=== PATIENT | male | born 1935 | race Caucasian/White ===

== ENCOUNTER → 2017-03-19 13:15 | Outpatient (CLI) | payer MEDICARE, OTHER ==
[2015-06-13 12:36] VITALS: BMI 19.7
[~2017-03-19 13:15] MED LIST: ACIPHEX20 MG PO; ADVAIR 250/501 DISK INH; CYCLOBENZAPRINE10 MG PO; ELIQUIS2.5 MG PO; FERREX 150 PLUS1 CAP PO; FLOMAX0.4 MG PO; FLUTICASONE PRO16 GM NASAL; HYDROCODON-ACE1 EAC6 PO; HYDROCODON-ACE1 EAC7 PO; IPRAT-ALBUT 0.5-3 ML UPD; LEVAQUIN750 MG PO; METAMUCIL FIB1 WAFER PO; PERCOCET 10/3251 TA1 PO; PREDNISONE20 MG PO; PROVENTIL HFA6.7 GM INH; PULMICORT0.5 MG/21 UPD; SINGULAIR10 MG PO; SPIRIVA18 MCG INH; TRAVATAN Z2.5 ML LEFT EYE; VITAMIN D31000 UNI2 PO
== END | disposition home or self-care (01) ==
LOC: D.RT 13:15
DX: J44.9 Chronic obstructive pulmonary disease, unspecified (principal)

== ENCOUNTER → 2018-03-16 07:47 | Outpatient (CLI) | payer MEDICARE, OTHER ==
[2015-06-13 12:36] VITALS: BMI 19.7
== END | disposition home or self-care (01) ==
LOC: D.RT 03-10 11:00 → D.RAD 03-10 11:45 → D.RT 07:47
DX: J44.9 Chronic obstructive pulmonary disease, unspecified (principal)

== ENCOUNTER 2018-05-27 11:19 | Emergency (ER) | payer MEDICARE, OTHER ==
[~2018-05-27] VITALS: Ht 172.7 cm; Wt 61.4 kg
[2018-05-27 11:49] VITALS: Ht 172.7 cm; Wt 61.4 kg
[2018-05-27] MEDS ORDERED: KEFLEX500 MG PO (15:21)
[2018-05-27 15:34] VITALS: BP 126/68
== END 2018-05-27 15:39 | disposition home or self-care (01) ==
LOC: D.ER 11:19
DX: S51.812A Laceration without foreign body of left forearm, initial encounter (principal); W26.8XXA Contact with other sharp object(s), not elsewhere classified, initial encounter; Y93.89 Activity, other specified; Y92.89 Other specified places as the place of occurrence of the external cause; S50.12XA Contusion of left forearm, initial encounter

== ENCOUNTER → 2019-03-13 08:41 | Outpatient (CLI) | payer MEDICARE, OTHER ==
[2018-05-27 11:49] VITALS: BMI 20.5
[~2019-03-13 08:41] MED LIST changes: +KEFLEX500 MG PO
== END | disposition home or self-care (01) ==
LOC: D.RT 08:41
PROVIDERS: ATTEND Internal Medicine Pulmonary Disease
DX: J44.9 Chronic obstructive pulmonary disease, unspecified (principal)

== ENCOUNTER 2019-07-24 19:25 | Inpatient (IN) | payer MEDICARE, OTHER ==
[~2019-07-24] VITALS: Ht 172.7 cm; Wt 62.6 kg
[2019-07-24] MEDS ORDERED: TRELEGY ELLIPT1 EACH INH (19:49)
[2019-07-24] MEDS ORDERED: HYDROCODONE-A1 UDTA2 PO (19:50)
[2019-07-24 20:18] LABS: BASOPHILS 0.2 % (0-2); EOSINOPHILS 0.8 % (0-7); HEMATOCRIT 35.5 % (42.0-54.0); HEMOGLOBIN 11.8 g/dL (13.5-17.5); IMMATURE GRANULOCYTES 0.3 % (0-5); LYMPHOCYTES 15.8 % (15-50); MCH 28.2 pg (26.0-34.0); MCHC 33.2 g/dL (31.0-37.0); MCV 84.9 fL (80.0-100.0); MEAN PLATELET VOLUME 9.5 fL (7.4-10.4); MONOCYTES 11.7 % (2-11); NEUTROPHILS 71.2 % (40-80); PLATELET COUNT 345 10x3/uL (130-400); RBC 4.18 10x6/uL (4.20-6.10); RDW 14.5 % (11.5-14.5); WBC 9.5 10x3/uL (4.8-10.8)
[2019-07-24 20:47] LABS: ALBUMIN 3.9 g/dL (3.4-5.0); ALKALINE PHOSPHATASE 69 U/L (46-116); ALT (SGPT) 16 U/L (10-68); AMYLASE - SERUM 67 U/L (25-115); BILIRUBIN - TOTAL 0.35 mg/dL (0.2-1.3); CALC OSMOLALITY 279 mosm/kg (275-300); CALCIUM 8.8 mg/dL (8.5-10.1); CARBON DIOXIDE 32.2 mmol/L (21.0-32.0); CHLORIDE - SERUM 100 mmol/L (98-107); CREATININE - SERUM 0.8 mg/dL (0.6-1.3); GLUCOSE 88 mg/dL (74-106); LIPASE 127 U/L (73-393); POTASSIUM - SERUM 3.7 mmol/L (3.5-5.1); PROTEIN - SERUM 8.2 g/dL (6.4-8.2); SODIUM 140 mmol/L (136-145); UREA NITROGEN 17 mg/dL (7-18); eGFR NON AFRICAN AMERICAN > 90 mL/min (90-120)
[2019-07-24 20:53] LABS: APPEARANCE CLEAR (CLEAR); BILIRUBIN NEGATIVE (NEGATIVE); COLOR YELLOW (YELLOW); EPITHELIAL CELLS 0-5 /hpf (0-5); GLUCOSE NEGATIVE (NEGATIVE); KETONE MODERATE mg/dL (NEGATIVE); NITRITE NEGATIVE (NEGATIVE); PROTEIN NEGATIVE (NEGATIVE); RED CELLS - URINE 0-5 /hpf (0-5); UROBILINOGEN NORMAL (NORMAL); WHITE CELLS - URINE 0-5 /hpf (0-5)
[2019-07-25] MEDS ORDERED: CLARITIN 10 MG10 MG PO (00:55)
[2019-07-25] MEDS ORDERED: CELEXA20 MG PO (00:55)
[2019-07-25] MEDS ORDERED: MUPIROCIN22 GM TOPICAL (00:55)
[2019-07-25 00:57] VITALS: BP 111/56; BMI 21.0
[2019-07-25 04:46] VITALS: BP 104/63
--- NOTE | 2019-07-25 07:31 | NUR ---
ROUNDING DONE WITH PAIENT IN [place] POSITION FOR LARGE HERNIA SEEN TO SCROTUM AREA, ICE PACK IN USE. ON HEART MONITOR. NPO UNTIL SEEN PER SURGERON. ON ROOM AIR. RIGHT FA PIV SEEN WITH NS INFUSING AT 125 CC/HR, BILATERAL SCD'S ON AND IN USE. AT BEDSIDE. WILL CPOC.
[2019-07-25 07:48] VITALS: BP 92/46
[2019-07-25] MEDS ORDERED: MIRALAX17 GM PO (07:54)
[2019-07-25] MEDS ORDERED: COLACE100 MG PO (07:55)
[2019-07-25] MEDS ORDERED: TRELEGY ELLIPT1 EACH INH (07:55)
--- NOTE | 2019-07-25 08:12 | NUR ---
0808-PATIENT IS STILL NPO. OP PERMITS SIGNED FOR SURGERY FOR TODAY.
--- NOTE | 2019-07-25 09:52 | NUR ---
TO OR VIA BED.
--- NOTE | 2019-07-25 11:33 | NUR ---
DEMOROL GIVEN FOR POST OP SHIVERING ALONG WITH WARM BLANKET.
[2019-07-25 11:46] VITALS: BP 108/48
--- NOTE | 2019-07-25 11:47 | NUR ---
1144-RETURNS FROM RR WITH SMALL WHITE BORDER GUAZE DRESSING TO LEFT GROIN, NO DATE.
[2019-07-25 13:07] VITALS: Ht 172.7 cm; Wt 62.6 kg
[2019-07-25 15:50] VITALS: BP 112/53
--- NOTE | 2019-07-25 18:20 | NUR ---
PATIENT TO STAND AT BEDSIDE TO TRY AND VOID, UNABLE TO. WILL PASS THIS TO NEXT SHIFT. PATIENT IS WANTING ANOTHER PAIN PILL, UNABLE TO UNTIL 1914. PATIENT IS COUGHING AND DEEP BREATHING FOR ME I HAVE ASKED.
--- NOTE | 2019-07-25 19:14 | NUR ---
PATIENT UP TO RESTROOM ATTEPMTING TO URINATE
[2019-07-25 19:32] VITALS: BP 110/50
--- NOTE | 2019-07-25 19:44 | MORECARE ---
CASE MANAGEMENT DISCHARGE SUMMARY PATIENT: SNEHAL MACHUCA UNIT: [id number] ADM DATE: 07/25/19 AGE: 84 : 36 SEX: M ROOM/BED: D.1204 AUTHOR: SABI MONTGOMERY PHYSICIAN: REFERRING PHYSICIAN: SEBAS DELUCA MD DATE OF SERVICE: 07/25/19 Discharge Plan Patient Name: SNEHAL MACHUCA Facility: [facility]:[place] : 1935 Planned Disposition: Home Anticipated Discharge Date: Discharge Date: Expected LOS: Initial Reviewer: [email or web address] Initial Review Date: 07/25/2019 Generated: 07/25/19 8:44 pm DCPIA - Discharge Planning Initial Assessment Updated by [email or web address]: Rosanna Miller on 07/25/19 7:42 pm * Is the patient Alert and Oriented? Yes * How many steps to enter\exit or inside your home? * PCP DAVION * Pharmacy [facility] * Preadmission Environment Home with Family * ADLs Independent * Other Equipment WALKER, BSC, SC, CANE, HOME 02 * List name and contact numbers for known caregivers / representatives who currently or will assist patient after discharge: INGRID MACHUCA - SPOUSE- [phone] MONTEZ MACHUCA - SON - [phone], * Verbal permission to speak to the caregivers and representatives has been obtained from the patient. Yes * Community resources currently utilized None * Additional services required to return to the preadmission environment? No * Can the patient safely return to the preadmission environment? Yes * Has this patient been hospitalized within the prior 30 days at any hospital? No Patient Name: SNEHAL MACHUCA Page 01101 at 1944 All edits/amendments must be made on the electronic document DICTATION DATE: 07/25/191943 FACILITIES PLANT ENGINEER: WADE 07/25/191943 RPT#: [id number] DC DATE: STATUS: ADM IN [facility] [address] [place] [address] END OF REPORT
--- NOTE | 2019-07-25 19:52 | MORECARE ---
CASE MANAGEMENT DISCHARGE SUMMARY PATIENT: SNEHAL MACHUCA UNIT: [id number] ADM DATE: 07/25/19 AGE: 84 : 36 SEX: M ROOM/BED: D.1204 AUTHOR: VALENTINA,DOC PHYSICIAN: REFERRING PHYSICIAN: SEBAS DELUCA MD DATE OF SERVICE: 07/25/19 Discharge Plan Patient Name: SNEHAL MACHUCA Facility: [facility]:[place] : 1935 Planned Disposition: Home Anticipated Discharge Date: Discharge Date: Expected LOS: Initial Reviewer: [email or web address] Initial Review Date: 07/25/2019 Generated: 07/25/19 8:51 pm Comments DCP- Discharge Planning Updated by [email or web address]: Rosanna Miller on 07/25/19 6:[address] Patient Name: SNEHAL MACHUCA Admission Status: ER Accout number: [id number] Admission Date: 07-25-2019 : 1935 Admission Diagnosis: Attending: LIAM DELUCA Current LOS: 1 Anticipated DC Date: Planned Disposition: Home Primary Insurance: MEDICARE A & B Discharge Planning Comments: CM met with patient at bedside after explaining CM role and obtaining verbal consent. Patient lives at home with his Brynn where he is independent with his care and plans to return there upon discharge. Patient feels this would be a safe discharge. CM discussed availability / needs of home health and medical equipment. Patient states he has walker, cane, BSC, SC, and home 02 that he wears @ [facility]. (unknown provider) Patient denies any discharge needs at this time. Patient states he will have his family drive him home upon discharge. CM will continue to follow and assist as needed with discharge planning / needs. Pile Driving Nozzleman: Rosanna Miller DCPIA - Discharge Planning Initial Assessment Updated by [email or web address]: Rosanna Miller on 07/25/19 7:42 pm * Is the patient Alert and Oriented? Yes * How many steps to enter\exit or inside your home? * PCP RICARDO * Pharmacy [facility] * Preadmission Environment Home with Family * ADLs Independent * Other Equipment WALKER, BSC, SC, CANE, HOME 02 * List name and contact numbers for known caregivers / representatives who currently or will assist patient after discharge: BRYNN MACHUCA - SPOUSE- [phone] MONTEZ MACHUCA - SON - [phone], * Verbal permission to speak to the caregivers and representatives has been obtained from the patient. Yes * Community resources currently utilized None * Additional services required to return to the preadmission environment? No * Can the patient safely return to the preadmission environment? Yes * Has this patient been hospitalized within the prior 30 days at any hospital? No Last DP export: 07/25/19 6:45 p Patient Name: SNEHAL MACHUCA Page 26804 at 1952 All edits/amendments must be made on the electronic document DICTATION DATE: 07/25/191950 STOKER INSTALLER: WADE 07/25/191950 RPT#: [id number] DC DATE: STATUS: ADM IN [facility] [address] [place] [address] END OF REPORT
--- NOTE | 2019-07-25 23:10 | NUR ---
PATIENT VOIDED 25ML SINCE HE RETURNED FROM SURGERY. BLADDER SCAN REVEALED 444ML.
--- NOTE | 2019-07-25 23:31 | NUR ---
INSERTED A 16F SERVIN CATH PER ORDERS. 600ML URINE RETURN
[2019-07-26 00:18] VITALS: BP 114/52
[2019-07-26 04:13] VITALS: BP 101/50
[2019-07-26 06:18] LABS: HEMATOCRIT 31.5 % (42.0-54.0); HEMOGLOBIN 10.3 g/dL (13.5-17.5); MCH 27.8 pg (26.0-34.0); MCHC 32.7 g/dL (31.0-37.0); MCV 85.1 fL (80.0-100.0); MEAN PLATELET VOLUME 9.8 fL (7.4-10.4); PLATELET COUNT 311 10x3/uL (130-400); RDW 15.1 % (11.5-14.5)
[2019-07-26 06:29] LABS: WBC 12.1 10x3/uL (4.8-10.8)
--- NOTE | 2019-07-26 07:09 | NUR ---
ROUNDING DONE WITH PATIENT HAVING HIS GLASSES ON AND GRINNING, STATES TO NO PAIN THIS AM AT PRESENT TIME. ON EP, NO LAB VALUES BACK AT THIS TIME. ON 2L PER NC. AT BEDISDE. ON HEART MONITOR. RIGHT FA PIV SEEN WITH NS INFUSING AT 125 CC/HR. SERVIN CATH PATENT WITH CLEAR YELLOW URINE. DRESSING TO LEFT GROIN, C/D/I. BILATERAL SCD'S ON AND IN USE.
[2019-07-26 07:15] LABS: ALKALINE PHOSPHATASE 52 U/L (46-116); ALT (SGPT) 17 U/L (10-68); BILIRUBIN - TOTAL 0.54 mg/dL (0.2-1.3); CALC OSMOLALITY 279 mosm/kg (275-300); CALCIUM 8.5 mg/dL (8.5-10.1); CARBON DIOXIDE 25.7 mmol/L (21.0-32.0); CHLORIDE - SERUM 105 mmol/L (98-107); GLUCOSE 114 mg/dL (74-106); MAGNESIUM - SERUM 2.1 mg/dL (1.8-2.4); POTASSIUM - SERUM 4.1 mmol/L (3.5-5.1); SODIUM 138 mmol/L (136-145); UREA NITROGEN 21 mg/dL (7-18); eGFR NON AFRICAN AMERICAN 76 mL/min (90-120)
[2019-07-26 07:16] LABS: ALBUMIN 2.8 g/dL (3.4-5.0); PROTEIN - SERUM 5.8 g/dL (6.4-8.2)
--- NOTE | 2019-07-26 07:20 | NUR ---
EP RESULTS ARE K+ 4.1, MAG 2.1. NO NEED TO COVER WITH SUPPLEMENTS.
--- NOTE | 2019-07-26 08:27 | NUR ---
IV TO RIGHT FA IS INFILTRATING, SWOLLEN. CATH REMOVED WITH TIP INTACT. RE-STIED WITH 22 G TO LEFT FA.
[2019-07-26 08:35] VITALS: BP 114/47
--- NOTE | 2019-07-26 09:07 | NUR ---
DR ASH TO CALL AND INQUIRE ABOUT PATIENT. AWAITING NEW ORDERS.
--- NOTE | 2019-07-26 10:41 | NUR ---
UP WITH THERAPY. FOELY CATH WAS REMOVED AT 0926 PAST BULB DEFLATION. INSTRUCTED TO USE URNIAL TO VOID IN.
[2019-07-26 10:53] LABS: HYPOCHROMASIA OCC; LYMPHOCYTES 19 % (15-50); MONOCYTES 17 % (2-11); NEUTROPHILS 61 % (40-80); PLATELET ESTIMATE NORMAL
[2019-07-26 11:26] VITALS: BP 120/53
[2019-07-26 15:16] VITALS: BP 110/54
[2019-07-26 19:00] VITALS: BP 133/89
--- NOTE | 2019-07-26 19:00 | NUR ---
REPORT RECEIVED FROM OFF GOING NURSE. PT IS RESTING IN BED AT THIS TIME WITH AT BEDSIDE. NO NEEDS NOTED OR VOICED AT THIS TIME. NO OBVIOUS SIGNS OF DISTRESS. INITIAL ASSESSMENT COMPLETED, SEE FLOWSHEET FOR DETAILS. WILL CONTINUE TO MONITOR.
[2019-07-27 04:00] VITALS: BP 105/60
[2019-07-27 06:45] LABS: BASOPHILS 0.1 % (0-2); EOSINOPHILS 0.4 % (0-7); HEMATOCRIT 28.2 % (42.0-54.0); HEMOGLOBIN 9.2 g/dL (13.5-17.5); IMMATURE GRANULOCYTES 0.2 % (0-5); LYMPHOCYTES 8.6 % (15-50); MCH 27.7 pg (26.0-34.0); MCHC 32.6 g/dL (31.0-37.0); MCV 84.9 fL (80.0-100.0); MEAN PLATELET VOLUME 9.9 fL (7.4-10.4); MONOCYTES 18.3 % (2-11); NEUTROPHILS 72.4 % (40-80); PLATELET COUNT 269 10x3/uL (130-400); RBC 3.32 10x6/uL (4.20-6.10); RDW 15.1 % (11.5-14.5); WBC 12.7 10x3/uL (4.8-10.8)
[2019-07-27 06:55] LABS: ALBUMIN 2.4 g/dL (3.4-5.0); ALKALINE PHOSPHATASE 47 U/L (46-116); ALT (SGPT) 16 U/L (10-68); CALCIUM 7.7 mg/dL (8.5-10.1); CARBON DIOXIDE 25.1 mmol/L (21.0-32.0); CHLORIDE - SERUM 105 mmol/L (98-107); GLUCOSE 102 mg/dL (74-106); MAGNESIUM - SERUM 1.7 mg/dL (1.8-2.4); POTASSIUM - SERUM 3.8 mmol/L (3.5-5.1); PROTEIN - SERUM 5.6 g/dL (6.4-8.2); SODIUM 138 mmol/L (136-145)
[2019-07-27 06:57] LABS: CALC OSMOLALITY 275 mosm/kg (275-300); CREATININE - SERUM 0.7 mg/dL (0.6-1.3); UREA NITROGEN 12 mg/dL (7-18); eGFR NON AFRICAN AMERICAN > 90 mL/min (90-120)
--- NOTE | 2019-07-27 07:10 | NUR ---
REPORT RECEIVED FROM MAKE UP EDITOR AND PATIENT CARE ASSUMED. PATIENT LAYING IN BED WITH EYES CLOSED AND BREATHING EVENLY. SLEEPING IN BS CHAIR. WILL CONTINUE WITH PLAN OF CARE. SR UP X 2 BED IN LOW POSITION AND CALL LIGHT IN REACH.
[2019-07-27 08:00] VITALS: BP 122/53; BP 133/59
--- NOTE | 2019-07-27 08:34 | NUR ---
NUTRITION F/U PT TOLERATING REG DIET, 100% INTAKE BREAKFAST THIS AM. NO COMPLAINTS. WILL CONTINUE TO PROVIDE REG DIET, MONITOR PO INTAKE. RD FOLLOWING
--- NOTE | 2019-07-27 09:40 | NUR ---
PATIENT AWAKE, ALERT AND ORIENTED X 4. PATIENT COMPLAINS OF LOWER ABD PAIN. ORAL T 100.2. MEDICATED PATIENT PER MAR FOR PAIN AND FEVER. WILL CONTINUE TO MONITOR. SR UP X 2 BED IN LOW POSITION AND CALL LIGHT IN REACH.
--- NOTE | 2019-07-27 10:00 | NUR ---
PATIENT STATES FEELING BETTER . PATIENT UP TO AMBULATE IN HALLWAY WITH AT SIDE. PATIENT IS STEADY AND TOLERATING WELL. COMPLETE LINEN CHANGE. PATIENT DENIES TAKING SHOWER STATES MAY THIS AFTERNOON. WILL CONTINUE TO MONITOR.SR UP X 2 BED IN LOW POSITION AND CALL LIGHT IN REACH.
[2019-07-27 11:30] VITALS: BP 118/58
--- NOTE | 2019-07-27 12:13 | NUR ---
RADIOLOGY IN ROOM FOR ABD XRAY.
--- NOTE | 2019-07-27 13:23 | OP ---
PATIENT NAME: SNEHAL MACHUCA MEDICAL RECORD: [id number] :[birth year] LOCATION:D.M3 D.1204 ADMISSION DATE:07/25/19 SURGEON: TEZ ASH MD DATE OF OPERATION: 07/25/2019 PREOPERATIVE DIAGNOSES: 1. Incarcerated left inguinal hernia. 2. Chronic obstructive pulmonary disease. POSTOPERATIVE DIAGNOSES: 1. Incarcerated left inguinal hernia. 2. Chronic obstructive pulmonary disease. PROCEDURE: Left inguinal hernia repair with large PHS mesh. SURGEON: Tez Ash MD REPORT OF PROCEDURE: The patient's left groin was prepped and draped in sterile fashion. An oblique incision was made above the inguinal ligament. Electrocautery was used to dissect through the subcutaneous tissues to the external oblique fascia. This fascia was opened up to the external ring using electrocautery. The patient had a large hernia sac present that was filled with abdominal contents. Eventually, we were able to manipulate the hernia sac and spermatic cord and placed a Winder around it. We then eviscerated the patient's testicles through the wound and began our dissection distally. As we opened up the cavity around the testicle, the patient had a small hydrocele with clear fluid present. We unroofed the hydrocele and took off any of the surrounding tissues that were present. We then were able to manually reduce the inguinal hernia. We were able to dissect free the hernia sac from the spermatic cord and then open up the hernia sac to inspect the bowel. The patient's colon appeared to be viable with no signs of gangrenous changes. The hernia sac was then closed and pushed back into the abdominal cavity. We then opened up the inguinal floor and placed a large PHS mesh in the preperitoneal space of Retzius. The mesh was sutured down on all sides using multiple interrupted 0 Vicryls. The wound was then irrigated out thoroughly with normal saline. The ilioinguinal nerve was found and high ligated. We then closed the external oblique fascia with running 2-0 Vicryl, Meet's was closed with interrupted 3-0 Vicryl and the skin was closed with running subcutaneous 5-0 Monocryl. A total of 10 mL of 0.25% Marcaine with epinephrine was infused into the surrounding tissues and the wound was dressed appropriately. COMPLICATIONS: None. CONDITION: Stable. ANESTHESIA: General endotracheal and local. BLOOD LOSS: Minimal. TRANSINT:[id number] Voice Confirmation ID: [id number] DOCUMENT ID: [id number] OPERATIVE REPORT [id number] SNEHAL MACHUCA CHRISTIAN MD at 1323 CC: [id number] DICTATION DATE: 07/25/19 1113 COLON AND RECTAL SURGEON: 07/25/19 1213 ADM IN [place] [id number] [place] [id number]
[2019-07-27 16:30] VITALS: BP 122/72
--- NOTE | 2019-07-27 16:30 | NUR ---
PATIENT IS STABLE AND VSS. PATIENT LAYING IN BED ON BACK . PATIENT DENIES ANY NEEDS OR PAIN. PATIENT STATES HE IS ANXIOUS TO GO HOME. IS AT BS. WILL CONTINUE TO MONITOR. SR UP X 2 BED IN LOW POSITION AND CALL LIGHT IN REACH.
[2019-07-27 19:00] VITALS: BP 108/51
--- NOTE | 2019-07-27 19:00 | NUR ---
REPORT RECEIVED FROM OFF GOING NURSE. PT IS LAYING IN BED AT THIS TIME. IS AT BEDSIDE. PT COMPLAINS OF PAIN AND SWELLING TO HIS GROIN AREA. PT CURRENTLY HAS ICEPACKS APPLIED TO THE AREA AND STATES THEY DO HELP WITH THE DISCOMFORT. NO FURTHER NEEDS NOTED AT THIS TIME. WILL CONTINUE TO MONITOR.
--- NOTE | 2019-07-28 01:15 | NUR ---
PT IS LAYING IN BED. COMPLAINS OF BEING UNABLE TO SLEEP. PT'S GROIN IS STILL RED AND SWOLLEN. FRESH ICE PACKS APPLIED TO AREA. NO FURTHER NEEDS NOTED. WILL CONTINUE TO MONITOR.
[2019-07-28 04:00] VITALS: BP 110/46
[2019-07-28 06:42] LABS: BASOPHILS 0 % (0-2); EOSINOPHILS 0.9 % (0-7); HEMOGLOBIN 9.5 g/dL (13.5-17.5); IMMATURE GRANULOCYTES 0.2 % (0-5); LYMPHOCYTES 8.2 % (15-50); MCH 27.8 pg (26.0-34.0); MCHC 32.8 g/dL (31.0-37.0); MCV 84.8 fL (80.0-100.0); MEAN PLATELET VOLUME 9.8 fL (7.4-10.4); MONOCYTES 13.6 % (2-11); NEUTROPHILS 77.1 % (40-80); PLATELET COUNT 270 10x3/uL (130-400); RBC 3.42 10x6/uL (4.20-6.10); RDW 15.3 % (11.5-14.5); WBC 11.3 10x3/uL (4.8-10.8)
[2019-07-28 07:12] LABS: ALBUMIN 2.7 g/dL (3.4-5.0); ALKALINE PHOSPHATASE 58 U/L (46-116); ALT (SGPT) 19 U/L (10-68); BILIRUBIN - TOTAL 0.81 mg/dL (0.2-1.3); CALC OSMOLALITY 277 mosm/kg (275-300); CALCIUM 7.7 mg/dL (8.5-10.1); CARBON DIOXIDE 24.7 mmol/L (21.0-32.0); CHLORIDE - SERUM 106 mmol/L (98-107); CREATININE - SERUM 0.8 mg/dL (0.6-1.3); GLUCOSE 95 mg/dL (74-106); MAGNESIUM - SERUM 1.8 mg/dL (1.8-2.4); POTASSIUM - SERUM 3.5 mmol/L (3.5-5.1); PROTEIN - SERUM 6.1 g/dL (6.4-8.2); SODIUM 140 mmol/L (136-145); UREA NITROGEN 10 mg/dL (7-18); eGFR NON AFRICAN AMERICAN > 90 mL/min (90-120)
--- NOTE | 2019-07-28 07:27 | NUR ---
REPORT RECEIVED FROM MOBILE PHONE SALESPERSON AND PATIENT CARE ASSUMED. PATIENT LAYING IN BED ON BACK AWAKE, ALERT AND ORIENTED X 4. PATIENT STATES DIDNT SLEEP WELL. STATES WASNT IN PAIN JUST COULD NOT SLEEP. PATIENT STATES HE REALLY WANTS TO GO HOME TODAY. PATIENT HAS BEEN APPLYING ICE PACK TO LT GROIN. EDEMA HAS DECREASED. WILL CONTINUE WITH PLAN OF CARE. SR UP X 2 BED IN LOW POSITION AND CALL LIGHT IN REACH. AT BS.
[2019-07-28] MEDS ORDERED: KEFLEX500 MG PO (12:30)
[2019-07-28 13:58] LABS: APPEARANCE CLEAR (CLEAR); BACTERIA FEW /hpf (NEGATIVE); BILIRUBIN NEGATIVE (NEGATIVE); COLOR YELLOW (YELLOW); EPITHELIAL CELLS RARE /hpf (0-5); GLUCOSE NEGATIVE (NEGATIVE); KETONE MODERATE mg/dL (NEGATIVE); NITRITE NEGATIVE (NEGATIVE); PROTEIN TRACE mg/dL (NEGATIVE); UROBILINOGEN NORMAL (NORMAL); WHITE CELLS - URINE OCC /hpf (NEGATIVE)
--- NOTE | 2019-07-28 16:02 | MORECARE ---
CASE MANAGEMENT DISCHARGE SUMMARY PATIENT: SNEHAL MACHUCA UNIT: [id number] ADM DATE: 07/25/19 AGE: 84 : 36 SEX: M ROOM/BED: D.1204 AUTHOR: VALENTINA,DOC PHYSICIAN: REFERRING PHYSICIAN: SEBAS DELUCA MD DATE OF SERVICE: 07/28/19 Discharge Plan Patient Name: SNEHAL MACHUCA Facility: [facility]:[place] : 1935 Planned Disposition: Home Anticipated Discharge Date: Discharge Date: 07/28/2019 Expected LOS: Initial Reviewer: [email or web address] Initial Review Date: 07/25/2019 Generated: 07/28/19 5:02 pm Comments DCP- Discharge Planning Updated by [email or web address]: Rosanna Miller on 07/28/19 2:[address] Patient Name: SNEHAL MACHUCA Encounter No: [id number] : 1935 Primary Insurance: MEDICARE A & B Anticipated DC Date: Planned Disposition: Home External Planned Provider: : Lucien/Kari IMM SIGNED 07/28/19 @ 1340 DCP follow-up note: Patient and family in agreement with discharge plan. No changes to plan. Case management will follow and assist as needed. Rosanna Miller DCP- Discharge Planning Updated by [email or web address]: Rosanna Miller on 07/25/19 6:[address] Patient Name: SNEHAL MACHUCA Admission Status: ER Accout number: [id number] Admission Date: 07-25-2019 : 1935 Admission Diagnosis: Attending: LIAM DELUCA Current LOS: 1 Anticipated DC Date: Planned Disposition: Home Primary Insurance: MEDICARE A & B Discharge Planning Comments: CM met with patient at bedside after explaining CM role and obtaining verbal consent. Patient lives at home with his Brynn where he is independent with his care and plans to return there upon discharge. Patient feels this would be a safe discharge. CM discussed availability / needs of home health and medical equipment. Patient states he has walker, cane, BSC, SC, and home 02 that he wears @ [facility]. (unknown provider) Patient denies any discharge needs at this time. Patient states he will have his family drive him home upon discharge. CM will continue to follow and assist as needed with discharge planning / needs. Groover And Striper Operator: Rosanna Miller DCPIA - Discharge Planning Initial Assessment Updated by [email or web address]: Rosanna Miller on 07/25/19 7:42 pm * Is the patient Alert and Oriented? Yes * How many steps to enter\exit or inside your home? * PCP RICARDO * Pharmacy [facility] * Preadmission Environment Home with Family * ADLs Independent * Other Equipment WALKER, BSC, SC, CANE, HOME 02 * List name and contact numbers for known caregivers / representatives who currently or will assist patient after discharge: BRYNN MACHUCA - SPOUSE- [phone] MONTEZ MACHUCA - SON - [phone], * Verbal permission to speak to the caregivers and representatives has been obtained from the patient. Yes * Community resources currently utilized None * Additional services required to return to the preadmission environment? No * Can the patient safely return to the preadmission environment? Yes * Has this patient been hospitalized within the prior 30 days at any hospital? No Coverage Notice Reviewer: [email or web address] - Rosanna Miller Notice Issued Date-Time: 07/28/2019 13:40 Notice Type: IM Discharge Notice Notice Delivered To: Patient Relationship to Patient: [facility] Name: Delivery Method: HAND - Hand Delivered Lisa Days: Prior Verbal Notification: Recipient Understood Notice: Yes Recipient Signature: Yes Med Rec Note Co-signed by Attending: Coverage Notice Comment: Last DP export: 07/25/19 6:51 p Patient Name: SNEHAL MACHUCA Page 73898 at 1602 All edits/amendments must be made on the electronic document DICTATION DATE: 07/28/19 160 NETWORK DIAGNOSTIC SUPPORT SPECIALIST: WADE 07/28/19 160 RPT#: [id number] DC DATE:07/28/19 STATUS: DIS IN [facility] [address] [place] [address] END OF REPORT
== END 2019-07-28 15:27 | disposition home or self-care (01) | DRG 352 ==
LOC: OBSVTIME → D.ER 19:25 → D.OPS 19:25 → OBSVTIME 23:33 → D.ER 23:33 → D.M3 23:33 → D.ER 07-25 00:12 → D.M3 07-25 11:39 → EDSTATUS 07-25 14:15 → D.M3 07-28 15:27
PROVIDERS: Family Medicine; Surgery; ADMIT Emergency Medicine; ATTEND Emergency Medicine
PROC: 0YU60JZ Supplement Left Inguinal Region with Synthetic Substitute, Open Approach (ICD-10-PCS; principal; 2019-07-25 14:15)
DX: K40.30 Unilateral inguinal hernia, with obstruction, without gangrene, not specified as recurrent (principal); J44.9 Chronic obstructive pulmonary disease, unspecified; K59.09 Other constipation; K21.9 Gastro-esophageal reflux disease without esophagitis; R33.9 Retention of urine, unspecified; D64.9 Anemia, unspecified; Z87.891 Personal history of nicotine dependence

== ENCOUNTER → 2020-03-21 12:43 | Outpatient (CLI) | payer MEDICARE, OTHER ==
[2019-07-25 13:07] VITALS: BMI 20.9
[~2020-03-21 12:43] MED LIST changes: +CELEXA20 MG PO; +CLARITIN 10 MG10 MG PO; +COLACE100 MG PO; +HYDROCODONE-A1 UDTA2 PO; +MIRALAX17 GM PO; +MUPIROCIN22 GM TOPICAL; +TRELEGY ELLIPT1 EACH INH
== END | disposition home or self-care (01) ==
LOC: D.LABREF 12:43
PROVIDERS: ATTEND Internal Medicine Pulmonary Disease
DX: Z11.59 Encounter for screening for other viral diseases (principal)

== ENCOUNTER → 2020-03-22 11:54 | Outpatient (CLI) | payer MEDICARE, OTHER ==
[2019-07-25 13:07] VITALS: BMI 20.9
== END | disposition home or self-care (01) ==
LOC: D.RAD 11:54 → D.RT 13:00
PROVIDERS: ATTEND Internal Medicine Pulmonary Disease
DX: J44.9 Chronic obstructive pulmonary disease, unspecified (principal)